=== PATIENT | female | born 1945 | race Caucasian/White ===

== ENCOUNTER → 2017-02-16 | Emergency (ER) | payer OTHER ==
[~2017-02-16] VITALS: Ht 162.6 cm; Wt 58.5 kg
== END | disposition left against medical advice (07) ==
LOC: ER 20:17
DX: Z53.20 Procedure and treatment not carried out because of patient's decision for unspecified reasons (principal)

== ENCOUNTER 2017-10-13 07:33 | Outpatient (CLI) | payer OTHER | END 2017-10-13 08:14 | disposition home or self-care (01) | LOC: RAD 07:33 | DX: M79.671 Pain in right foot (principal); M79.672 Pain in left foot; M25.512 Pain in left shoulder; E21.3 Hyperparathyroidism, unspecified; E83.42 Hypomagnesemia; E56.1 Deficiency of vitamin K; E03.8 Other specified hypothyroidism; D64.89 Other specified anemias; D68.8 Other specified coagulation defects; N39.0 Urinary tract infection, site not specified; E88.89 Other specified metabolic disorders; I49.8 Other specified cardiac arrhythmias ==

== ENCOUNTER 2017-10-27 05:58 | Day surgery (SDC) | payer OTHER | END 2017-10-27 17:00 | disposition home or self-care (01) | LOC: CIR.AMB 05:58 | DX: M75.112 Incomplete rotator cuff tear or rupture of left shoulder, not specified as traumatic (principal); M24.512 Contracture, left shoulder; M65.812 Other synovitis and tenosynovitis, left shoulder; M25.312 Other instability, left shoulder; M13.812 Other specified arthritis, left shoulder; M75.42 Impingement syndrome of left shoulder; M75.22 Bicipital tendinitis, left shoulder; M24.112 Other articular cartilage disorders, left shoulder ==

== ENCOUNTER 2018-02-22 07:32 | Outpatient (CLI) | payer OTHER | END 2018-02-22 07:39 | disposition home or self-care (01) | LOC: RAD 07:32 | DX: M24.512 Contracture, left shoulder (principal) ==

== ENCOUNTER 2018-03-26 07:27 | Outpatient (CLI) | payer OTHER | END 2018-03-26 07:33 | disposition home or self-care (01) | LOC: LAB 07:27 | DX: N39.0 Urinary tract infection, site not specified (principal); Z22.322 Carrier or suspected carrier of Methicillin resistant Staphylococcus aureus ==